=== PATIENT | female | born 2000 | race Caucasian/White ===

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

== ENCOUNTER 2021-01-08 20:56 | Emergency (ER) | payer BC ==
[2021-01-08 21:09] VITALS: BP 120/80; PULSE 75; RESP 18; TEMP 97.4
--- NOTE | 2021-01-08 21:49 | XR ---
Left ankle HISTORY: Pain, trauma 3 views of the left ankle Bone mineralization, joint spaces and alignment are maintained. No significant soft tissue swelling. IMPRESSION: No acute fracture or dislocation. Consider ankle MRI for increased sensitivity as indicat ed.
--- NOTE | 2021-01-08 22:26 | ED ---
Lower Extremity Injury HPI - General Chief Complaint: Extremity Injury, Lower Stated Complaint: Leg injury Time Seen by Provider: 01/08/21 21:13 Source: patient Mode of arrival: wheelchair Limitations: no limitations - History of Present Illness Initial Comments: Patient is a 20-year-old female presenting to the emergency Department with complaints of severe pain of her left calf area. 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 She states she was not able to bear any weight immediately afterwards and she has not been able to bear any weight since. She states this happened a few hours prior to arrival. She states she did take some ibuprofen prior to arrival. She denies any previous injuries of her left lower leg. She has no further complaints. - Related Data Allergies Allergy/AdvReac Type Severity Reaction Status Date / Time No Known Allergies Allergy Verified 01/08/21 21:09 Review of Systems ROS Statement: Those systems with pertinent positive or pertinent negative responses have been documented in the HPI. ROS Other: All systems not noted in ROS Statement are negative. Past Medical History Past Medical History: No Reported History History of Any Multi-Drug Resistant Organisms: None Reported Past Surgical History: No Surgical Hx Reported Smoking Status: Never smoker Past Alcohol Use History: None Reported Past Drug Use History: None Reported General Exam - General Exam Comments Initial Comments: GENERAL: Patient is well-developed and well-nourished. Patient is nontoxic and in mild distress. HEAD: Atraumatic, normocephalic. EYES: Pupils equal round and reactive to light, extraocular movements intact, sclera anicteric, conjunctiva are normal. Eyelids were unremarkable. ENT: Nares patent, oropharynx clear without exudates. Moist mucous membranes. NECK: Normal range of motion, supple without lymphadenopathy or JVD. LUNGS: Unlabored respirations. Breath sounds clear to auscultation bilaterally and equal. No wheezes rales or rhonchi. HEART: Regular rate and rhythm without murmurs, rubs or gallops. ABDOMEN: Soft, nontender, normoactive bowel sounds. : Deferred MUSCULOSKELETAL: Patient has severe pain with palpation of the left calf, left Achilles area. He like there could be a small deformity present in the left distal Achilles. She is a positive Unger test, but could also be due secondary to pain. She is neurovascular intact. There isno skin swelling present. No clubbing or cyanosis. NEUROLOGICAL: Patient is alert and oriented x 3. PSYCH: Normal mood, normal affect. SKIN: Warm, Dry, normal turgor, no rashes or lesions noted. Limitations: no limitations Course Vital Signs 01/08/21 21:06 Temperature 97.4 F L Pulse Rate 75 Respiratory 18 Rate Blood Pressure 120/80 O2 Sat by Pulse 100 Oximetry Medical Decision Making - Medical Decision Making Patient is a 20-year-old female here with pain of her left calf and left Achilles after she went to push off her block during a track race. Patient has not been able to weight-bear since. His happened a few hours prior to arrival. Ankle x-rays reveal no acute bony abnormalities. I feel like her exam is consistent with a possible Achilles tendon tear versus gastroc or soleus tear. Patient will be placed in a posterior splint in slight plantarflexion. Crutches were given today. Patient will follow up with orthopedics. They have seen Dr. Jorge in the past and wishes to go back to see him. Patient is stable for discharge. She'll take Tylenol or Motrin for any discomfort. Mother and patient are in agreement with this plan of care. Case discussed with Dr. Moran. Disposition Clinical Impression: Injury of left Achilles tendon Disposition: HOME SELF-CARE Condition: Stable Instructions (If sedation given, give patient instructions): Achilles Tendon Rupture (ED) Additional Instructions: Please return to the Emergency Department if symptoms worsen or any other concerns. X-rays today show no acute bony abnormalities. Recommend keeping splint in place until follow-up with orthopedics as discussed. No weightbearing of the left lower extremity until follow-up with orthopedics. May alternate between Tylenol and Motrin for discomfort. Is patient prescribed a controlled substance at d/c from ED?: No Referrals: Cal Stevens MD [Primary Care Provider] - 1-2 days Claude Jorge MD [STAFF PHYSICIAN] - 1-2 days Time of Disposition: 22:25
== END 2021-01-08 23:08 | disposition home or self-care (01) ==
LOC: EC 20:56
DX: S86.002A Unspecified injury of left Achilles tendon, initial encounter (principal); X58.XXXA Exposure to other specified factors, initial encounter
CPT/HCPCS: 29515; 99282

== ENCOUNTER 2021-01-19 09:39 | Day surgery (SDC) | payer BC ==
[2021-01-18 11:50] VITALS: BMI 19.8
[~2021-01-19 09:39] MED LIST: DEXAMETHASONE SOD PHOSPHATE 4 MG/ML 1 ML VIAL IV ONE; HYDROmorphone 0.5 MG/0.5 ML SYRINGE IVP PRN; LACTATED RINGERS 1,000 ML IV SCH; LIDOCAINE 1% (10MG/ML) FOR IV START INTRADERMA PRN; MIDAZOLAM 2 MG/2 ML VIAL IV PRN; ONDANSETRON 4 MG/2 ML VIAL IVP ONE
[2021-01-19] MEDS ORDERED: ROPIVACAINE 5 MG/ML 30 ML VIAL ONE (11:41)
[2021-01-19] MEDS ORDERED: fentaNYL (PF) 50 MCG/ML 2 ML AMP ONE (11:41)
[2021-01-19] MEDS ORDERED: MIDAZOLAM 2 MG/2 ML VIAL ONE (11:41)
[2021-01-19] MEDS ORDERED: ROCURONIUM 10 MG/ML (5 ML VIAL) IV ONE (11:41)
[2021-01-19] MEDS ORDERED: SUCCINYLCHOLINE CHLORIDE 100 MG/5 ML SYR IV ONE (11:41)
[2021-01-19] MEDS ORDERED: SODIUM CHLORIDE 0.9% 100 ML BAG ONE (11:41)
[2021-01-19] MEDS ORDERED: ceFAZolin 1,000 MG VIAL ONE (11:41)
[2021-01-19] MEDS ORDERED: PROPOFOL 10 MG/ML 20 ML VIAL IV ONE (11:41)
[2021-01-19 13:09] VITALS: TEMP 97
[2021-01-19 14:10] VITALS: RESP 18
--- NOTE | 2021-01-19 14:28 | P.ANPRN ---
Procedure Note - Anesthesia - Nerve Block Performed Left Popliteal Single Time Out Performed: Yes Date of Procedure: 01/19/21 Procedure Start Time: 10:46 Procedure Stop Time: 10:51 Location of Patient: PreOp Indication: Acute Post-Operative Pain, Analgesia, Dx/Pain Location, Requested by Surgeon Sedation Type: Sedate with meaningful contact maintained Preparation: Sterile Prep, Sterile Dressing Position: Right Lateral Catheter: None Needle Types: Pajunk Needle Gauge: 21 Ultrasound used to visualize needle placement: Yes Ultrasound used to observe medication spread: Yes Injectate: 0.5% Ropivacaine (see comment for volume) (20cc) Blood Aspirated: No Pain Paresthesia on Injection Noted: No Resistance on Injection: Normal Image Stored and Saved: Yes Events: Uneventful and Well Tolerated
[2021-01-19 14:41] VITALS: BP 117/71; PULSE 65
--- NOTE | 2021-01-19 15:22 | P.OP ---
Date of Procedure: 01/19/21 Preoperative Diagnosis: Ruptured Achilles tendon left leg Postoperative Diagnosis: Same Procedure(s) Performed: Open repair of Achilles tendon rupture left leg Implants: (2) 4.75 mm swivel lock anchors Anesthesia: LEWIS Surgeon: Brennan Sommer Estimated Blood Loss (ml): 3 Pathology: none sent Condition: stable Disposition: PACU Indications for Procedure: Ruptured and retracted left Achilles tendon Description of Procedure: Prior to the patient being brought to the operating room anesthesia administered a nerve block on the left lower extremity under mild sedation and ultrasonic guidance. Then the patient was brought into the operating room and timeout was taken to confirm correct patient identifiers, correct site of surgery, and correct procedure. On the same table the patient was induced and placed under general anesthetic. Then the patient was rolled onto the operative room table in the prone position. Appropriate padding was done beneath thoracic area as well as below the knees and ankles and any other bony prominences. The patient is also position so that the feet were off the table. Once position was satisfactory, a tourniquet was placed on the left thigh. Then the left leg was prepped and draped in usual manner. The leg was exsanguinated and with the knee partially flexed, the tourniquet was inflated to 250 mmHg. Attention then directed over the posterior ankle, where the tissue was palpated until the defect in the Achilles tendon was noted. This is approximately 78 cm from the calcaneal insertion. A small transverse incision was made near the area of the proximal stump. The incision was deepened down through the saphenous layer careful to identify voiding retract any neurovascular structures and cauterize any bleeding vessels. Dissection was then carried down to the peritenon which had shown tearing the peritenon was then opened exposing the tendon ends. There was significant fraying of the Achilles tendon both on the proximal distal ends. The peritenon was identified and then blunt dissection was used to separate the peritenon from the tendon. Then a sponge forcep was used and passed through the tarsal peritenon at which point the proximal end of the Achilles tendon rupture was palpated so we are able to grasp it and pull it and get back into the surgical field. With tension held on the forceps so that the tendon did not retract again, the [employer] PARS jig was inserted with the inner arms along the tendon but inside the peritenon and the outer arms outside the leg. It'll was passed through the #1 hole to lock the jig intended in place avoid and retract. At that point the forcep was removed off the tendon. Due to tape was passed through the #2, #3, and #4 holes. The needles were used to pass the suture from medial to lateral through the tendon. With all the suture was in place the jig was slowly removed until some of the suture was exposed and then a forcep was utilized to pull the rest of the suture through. At that point all strands of suture where through the incision. Small stab incisions are made over the calcaneus on either side of the Achilles tendon insertion. Drill holes for the 4.75 mm anchor were then made and then the holes tapped. The histotechnologist supervisor place tension on the opposite side sutures while holding the ankle simultaneously plantarflexed. Then I placed tension on the other sutures and passed it through the 4.75 swivel lock and then inserted the anchor into the lateral drill hole and advanced the anchor to full depth. Then with the ankle still plantarflexed the other sutures on the medial aspect were passed through t he 4.75 swivel lock anchor and then the tip of the finance lecturer was placed over the drill hole in the medial calcaneus at the Achilles insertion. The position of the ankle was adjusted as was the tensioning on the suture until a satisfactory position was achieved, which was just slightly plantar flexed beyond 90. With tension placed on the suture the anchor was advanced locking the suture in the medial drill hole and then the suture anchor was advanced until it was at proper depth. Once completed the Achilles tendon was palpable along its entire length with no defects. Also Unger's test was performed which was negative. All wounds were thoroughly irrigated with antibiotic saline. The peritenon was reapproximated with 4-0 Monocryl. Subcu closure of all incisions was done with 4-0 Monocryl. And Stratafix jumpstart was applied over the incisions and a bulky dry dressings applied to the left ankle and foot. It was released and capillary refill return to all digits on the left foot. Then the patient was placed in a well molded, well-padded, plaster posterior mold sugar tong splint. The ankle was held in just mild plantar flexion while it dried. The patient tolerated above procedure and anesthesia well, she was placed on the transfer table back into the supine position at which point she was extubated. She was taken recovery with vital signs stable. was used as a subcuticular stitch on the transverse proximal incision only.
== END 2021-01-19 15:04 | disposition home or self-care (01) ==
LOC: OR 09:39
PROVIDERS: ATTEND Orthopaedic Surgery Sports Medicine
DX: S86.012A Strain of left Achilles tendon, initial encounter (principal); E11.9 Type 2 diabetes mellitus without complications; E03.9 Hypothyroidism, unspecified; F90.9 Attention-deficit hyperactivity disorder, unspecified type
CPT/HCPCS: 64445; 76942; 84703; 27650; C1713 ×2; J2250; J1100; J2405; J0690; J3010; J2795; J0330; J2704